=== PATIENT | female | born 1990 | race Caucasian/White ===

== ENCOUNTER 2020-11-30 02:32 | Inpatient (IN) | payer OTHER ==
[~2020-11-30] VITALS: Ht 165.1 cm; Wt 88.6 kg
[2020-11-30 19:20] VITALS: BP 117/74
--- NOTE | 2020-11-30 19:45 | History & Physical-OB ---
OB - Chief Complaint & HPI Date/Time Date of Admission: Date of Admission: Nov 30, 2020 at 19:02 Date seen by a Provider: Nov 30, 2020 Time Seen by a Provider: 19:49 Chief Complaint/History OB-Reason for Admission/Chief: Induction of Labor Hx : 1 Hx Para: 0 Expected Date of Delivery: Dec 01, 2020 Gestational Age in Weeks: 39 Gestational Age in Days: 6 Indication for induction: other (approaching postdates) History of Labs A positive, antibody neg, RI. HIV/hepB/RPR NR. GC/chlamydia neg. GBS positive. Allergies and Home Medications Allergies Coded Allergies: Latex, Natural Rubber (Verified Allergy, Mild, 11/30/20) Patient Home Medication List Home Medication List Reviewed: Yes OB - History Hx of Present Ultrasounds: Normal mid trimester US Obstetrical Complications: None Medical Complications: None Obstetrical History Hx : 1 Hx Para: 0 Hx # Term Pregnancies: 0 Hx # Pregnancies: 0 Number of Living Children: 0 Hx Termination: No Hx Multiple Gestation: No Hx Ectopic : No Hx Stillbirth: No Hx Complication: No Hx Induced Hypertens: No Hx Maternal Gestational Diabet: No Hx Hemorrhage: No Patient Past Medical History PMHx: Denies Social History/Family History Alcohol Use: Denies Use Recreational Drug Use: No Smoking Cessation: Never smoker Immunizations Rubella: immune RPR/VDRL: Negative GBS Status: Positive HBsAG: Negative OB - Admission Exam Physical Exam HEENT: NCAT Abdomen: Gravid Extremities: Normal Cervical Dilatation: 1cm Effacement: 0% Membranes: Intact Amniotic Fluid: Clear Heart Rate: 130's Decelerations: No Decelerations Senior Care Variability: Average (6-25) Contractions on Admission: >10 Minutes Apart Intensity: Mild Dunham Scoring Tool (Modified) Dilation (cm): 1-2cm (1) Effacement (%): 0-30% (0) Descent/Station: -3 (0) Cervix Consistency: Medium(1) Cervix Position: Anterior (2) Subtract 1 point for: Nulliparity (-1) Dunham Score: 3 OB - Assessment/Plan/Diagnosis Assessment Admission Dx Term intrauterine at 40 weeks gestation GBS positive Induction of labor Admission Status: Inpatient Order (span 2 midnights) Reason for Inpatient Admission: Labor, delivery and course Plan Plan: Induction Induction Method: per Misoprostol Protocol KEVON JENKINS MD Nov 30, 2020 19:45
[2020-11-30] MEDS ORDERED: AMPICILLIN FOR IV USE 2,000 MG in WATER (STERILE) FOR INJECTION 14.8 ML IV SCH (19:46)
[2020-11-30 19:56] LABS: BASOPHILS % (AUTO) 0 % (0-10); EOSINOPHILS # (AUTO) 0.1 10^3/uL (0.0-0.3); EOSINOPHILS % (AUTO) 1 % (0-10); HEMATOCRIT 35 % (35-52); HEMOGLOBIN 11.2 g/dL (11.5-16.0); LYMPHOCYTES # (AUTO) 1.7 10^3/uL (1.0-4.0); LYMPHOCYTES % (AUTO) 19 % (12-44); MEAN CORPUSCULAR HEMOGLOBIN 29 pg (25-34); MEAN CORPUSCULAR HGB CONC 33 g/dL (32-36); MEAN CORPUSCULAR VOLUME 88 fL (80-99); MEAN PLATELET VOLUME 12.1 fL (9.0-12.2); MONOCYTES # (AUTO) 0.6 10^3/uL (0.0-1.0); MONOCYTES % (AUTO) 7 % (0-12); NEUTROPHILS # (AUTO) 6.8 10^3/uL (1.8-7.8); NEUTROPHILS % (AUTO) 73 % (42-75); PLATELET COUNT 226 10^3/uL (130-400); WHITE BLOOD COUNT 9.4 10^3/uL (4.3-11.0)
[2020-11-30 20:00] VITALS: BP 117/74
[2020-11-30] MEDS ORDERED: TERBUTALINE INJ 1 MG/ML (BRETHINE) AMP SC PRN (20:00)
[2020-11-30] MEDS ORDERED: LACTATED RINGERS 1,000 ML IV SCH (20:00)
[2020-11-30] MEDS ORDERED: MINERAL OIL CONCENTRATE 99.9% 15 ML UDC TOP PRN (20:00)
[2020-11-30] MEDS: D5 LR IV SOLUTION 1,000 ML IV SCH (20:53)
[2020-11-30 21:00] VITALS: BP 112/72
[2020-11-30 22:00] VITALS: BP 114/76
[2020-11-30] MEDS ORDERED: CATHETER FLUSH 10 ML SYR IV SCH (22:00)
[2020-11-30 23:00] VITALS: BP 97/53
[2020-12-01] VITALS (31 sets, daily range): BP systolic 98–126; BP diastolic 55–82
[2020-12-01] MEDS: AMPICILLIN FOR IV USE 1,000 MG in WATER (STERILE) FOR INJECTION 7.4 ML IV SCH ×5 (01:08→16:48)
--- NOTE | 2020-12-01 03:37 | Labor Progress Note ---
Labor Progress Note Labor Progress Note Date Seen by Provider: Dec 01, 2020 Time Seen by Provider: 02:45 Subjective: Pt denies complaints. Has had a few variable decelerations that resolved with position change, oxygen and fluid boluses. Objective: Cervical exam: /0/-3 Consistency: Soft Position: anterior Presentation: vertex heart tones: 150 beats per minute, moderate variability, reactive Tocometer: 1-2 ctx/10 minutes Assessment/Plan: Tomasa Conklin is a (30 /Para 1 / 0,Gestational Age (wks)40 here for induction of labor. CEFM/TOCO Due to variable decelerations, second dose of cytotec held, attempted placement of cervical ripening catheter manually, but unable to pass through os, patient agreed to speculum exam and placement, a ring forceps was used to pass the internal balloon through the cervix until the external balloon was in the os and the uterine balloon was then filled with 20 cc of saline, gentle traction showed good placement and the external balloon was seen just outside the os and was filled with 20 cc saline. Repeat gentle traction confirmed good position and both the uterine and external balloons were filled with 80 cc of saline. Patient and infant tolerated speculum procedure well. Anesthesia: None Anticipate vaginal delivery. Vitals - Labs Vital Signs - I&O Vital Signs Date Time Temp Pulse Resp B/P (MAP) Pulse Ox O2 Delivery O2 Flow Rate FiO2 12/01/20 00:00 59 18 121/66 (84) Room Air 11/30/20 23:00 61 18 97/53 (68) 96 Room Air 11/30/20 22:00 36.3 72 18 114/76 (89) Room Air 11/30/20 21:00 68 18 112/72 (85) Room Air 11/30/20 20:00 37.0 82 18 117/74 (88) Room Air 11/30/20 19:20 37.0 82 18 98 Room Air I & O 12/01/20 07:00 Intake Total 1022.2 ml Balance 1022.2 ml Labs Laboratory Tests 11/30/20 19:30: White Blood Count 9.4, Red Blood Count 3.92, Hemoglobin 11.2L, Hematocrit 35, Mean Corpuscular Volume 88, Mean Corpuscular Hemoglobin 29, Mean Corpuscular Hemoglobin Concent 33, Red Cell Distribution Width 13.2, Platelet Count 226, Mean Platelet Volume 12.1, Immature Granulocyte % (Auto) 1, Neutrophils (%) ( Auto) 73, Lymphocytes (%) (Auto) 19, Monocytes (%) (Auto) 7, Eosinophils (%) (Auto) 1, Basophils (%) (Auto) 0, Neutrophils # (Auto) 6.8, Lymphocytes # (Auto) 1.7, Monocytes # (Auto) 0.6, Eosinophils # (Auto) 0.1, Basophils # (Auto) 0.0, Immature Granulocyte # (Auto) 0.1 KEVON JENKINS MD Dec 01, 2020 03:37
[2020-12-01] MEDS: D5 LR IV SOLUTION 1,000 ML IV SCH ×3 (06:05→14:31)
[2020-12-01] MEDS ORDERED: OXYTOCIN PRE-MIX DRIP 500 ML IV ONE (16:25)
[2020-12-01] MEDS ORDERED: OXYTOCIN PRE-MIX DRIP 500 ML IV SCH (17:00)
[2020-12-01] MEDS ORDERED: CITRIC ACID/SOB CIT (BICITRA) 30 ML UDC ONE (17:13)
[2020-12-01] MEDS ORDERED: FAMOTIDINE 20MG/2ML IV (PEPCID) ONE (17:14)
[2020-12-01] MEDS ORDERED: OXYTOCIN PRE-MIX DRIP 1,000 ML IV ONE (17:25)
[2020-12-01] MEDS ORDERED: ROPIVACAINE 5MG/ML 30ML VIAL ONE (17:25)
[2020-12-01] MEDS ORDERED: fentaNYL INJ 100 MCG/2 ML AMP ONE (17:25)
[2020-12-01] MEDS: LACTATED RINGERS 1,000 ML IV SCH ×2 (17:27→18:13)
[2020-12-01] MEDS ORDERED: ceFAZolin 2 GM IV Premixed 50 ML ONE (17:35)
[2020-12-01] MEDS ORDERED: METOCLOPRAMIDE INJ 10 MG/2 ML (REGLAN) ONE (17:37)
[2020-12-01] MEDS ORDERED: MEASLES,MUMPS,RUBELLA 1 EA INJ SC SCH (17:45)
[2020-12-01] MEDS ORDERED: TETANUS,DIPTH,PERTUSS P/F (BOOSTRIX) 0.5 ML VIAL IM SCH (17:45)
[2020-12-01] MEDS ORDERED: ONDANSETRON 4 MG/2 ML (SDV) Z0FRAN IVP PRN ×2 (17:45→19:00)
[2020-12-01] MEDS ORDERED: ceFAZolin 2 GM IV Premixed 50 ML IV ONE (17:45)
--- NOTE | 2020-12-01 17:50 | Progress Note ---
Standard Progress Note Progress Notes/Assess & Plan Date Seen by a Provider: Dec 01, 2020 Time Seen by a Provider: 17:45 Progress/Assessment & Plan Patient admitted by Dr. Rashid for IOL, she was here overnight, and had non- reassuring heart tracings at time, but would recover. However every attempt of augmentation and regulating contraction pattern, heart tracing would become non-reassuring. I was consulted for PLTCS, risk was reviewed bedside. All questions answered and moving to OR bang. GEE PRUITT DO Dec 01, 2020 17:50
--- NOTE | 2020-12-01 17:53 | Discharge Inst-Women's Service ---
Discharge Inst-Women's Serv Depart Medication/Instructions New, Converted or Re-Newed RX: RX on Chart Final Diagnosis POD 2 PLTCS Problems Reviewed?: Yes Consults/Follow Up Additional Follow Up: Yes Orders/Referrals Dr. Pedraza in 7-[address] Rashid in 6 weeks Activity Activity: Activity as Tolerated Driving Instructions: No Driving for 1 Week NO SMOKING: NO SMOKING Nothing Inside Vagina: No Douching, No [place], No Tampons Diet Discharge Diet: No Restrictions Symptoms to Report to : Bleeding Excessive, Pain Increased, Fever Over 101 Degrees F, Vaginal Bleeding Increase, Questions/Concerns For Any Problems or Questions: Contact Your Physician Skin/Wound Care Infection Signs and Symptoms: Increased Redness, Foul Odor of Wound, Increased Drainage, Skin Itchy or Has a Rash, Increased Swelling, Temperature Above 101 F Operative Area Clean and Dry: Keep Incision Clean/Dry Stitches/[place]au/Dermabond: Dermabond, Care of Stitches Bathing Instructions: GEE Jackosn DO Dec 01, 2020 17:53
[2020-12-01] MEDS ORDERED: DCS100C PO (17:55)
[2020-12-01] MEDS ORDERED: IBUP-844 PO (17:55)
[2020-12-01] MEDS ORDERED: ACHD5005 PO (17:55)
[2020-12-01] MEDS ORDERED: PHENYLEPHRINE 100 MCG/ML 10 ML (ANESTHESIA) SYR ONE (18:09)
[2020-12-01] MEDS: OXYTOCIN PRE-MIX DRIP 500 ML IV SCH ×3 (18:45→22:31)
[2020-12-01] MEDS ORDERED: LACTATED RINGERS 1,000 ML IV PRN ×2 (19:00)
[2020-12-01] MEDS ORDERED: CATHETER FLUSH 10 ML SYR IV PRN (19:00)
[2020-12-01] MEDS ORDERED: METOCLOPRAMIDE INJ 10 MG/2 ML (REGLAN) IV ONE (19:00)
[2020-12-01] MEDS ORDERED: CITRIC ACID/SOB CIT (BICITRA) 30 ML UDC PO ONE (19:00)
[2020-12-01] MEDS ORDERED: HYDROmorphone 2 MG/ML VIAL (DILAUDID) IV ONE (19:00)
[2020-12-01] MEDS: KETOROLAC 30 MG/ML VIAL IV SCH (19:10)
--- NOTE | 2020-12-01 19:58 | OPERATIVE REPORT ---
DATE OF SERVICE: PREOPERATIVE DIAGNOSES: 1. A 30-year-old G1, P0 at 40 weeks' gestation. 2. intolerance of labor. POSTOPERATIVE DIAGNOSES: 1. A 30-year-old G1, P0 at 40 weeks' gestation. 2. intolerance of labor. PROCEDURE: Primary low transverse section. SURGEON: Solitario Pedraza DO ANESTHESIA: Epidural, which was bolused. ESTIMATED BLOOD LOSS: 800 mL. URINE OUTPUT: 300 mL clear at the end of the procedure. FLUIDS: 1000 mL of lactated Ringer's solution. FINDINGS: A live male weighing 8 pounds 5 ounces, Apgars of 8 and 9. Grossly normal appearing uterus, bilateral fallopian tubes and ovaries. SPECIMEN SENT: Placenta. INDICATIONS FOR PROCEDURE: This 30-year-old female is a patient who was admitted by the [facility] for induction of labor. Dr. Rashid managed her labor, she was admitted and started on cervical ripening agents and given a Riggs bulb catheter after this due to lack of change in dilation. After the Riggs bulb was removed, I was notified that she was [address] Rashid was going to start Pitocin; however, there was evidence of distress with a few variable decelerations. Shortly after Pitocin augmentation was administered, the heart rate tracing was nonreassuring. I was consulted at that point due to remoteness of delivery and intolerance of labor to provide section. Risks of the procedure was discussed with the patient once I arrived including risk of bleeding, infection, damaging surrounding structures including, but not limited to bowel, bladder, ureter, kidneys, possible need for operation, postoperative complications that may occur, risk from anesthesia, possible need for blood transfusion and even . After everything was discussed with the patient in detail, consent was obtained in the preoperative area, the patient was taken to the operating room. OPERATIVE REPORT IN DETAIL: Once in the operating room, epidural analgesia was found to be adequate, placed in the supine position with leftward tilt, prepped and draped in normal sterile fashion where a timeout was performed, and anesthesia was tested. I then make a Pfannenstiel skin incision with a knife and carried down to underlying fascia using Bovie cautery. The fascial incision extended laterally using Bovie cautery. Superior aspect of fascial incision was then grasped with Sindi clamps, tented up and dissected off the underlying rectus muscle. Inferior aspect of fascial incision was then grasped with Sindi clamps, tented up and dissected off the underlying rectus muscles. Rectus muscle was then dissected down the midline using Elkins scissors, which exposed the peritoneum, which I entered bluntly and extended using blunt traction. An Rodolfo ring retractor was placed in the peritoneal incision, which offers excellent lateral sidewall retraction. I identified the lower uterine segment, which was found to be thinned out. I make a low transverse incision to the vesicouterine peritoneum and bluntly dissected off the lower uterine segment, creating a bladder flap. I then proceeded with my myotomy until membranes were visualized, at which point I extended the uterine incision laterally and superiorly using bandage scissors. Amniotomy was then performed using Allis clamp. Clear fluid was noted. Infant was found in vertex presentation. With gentle fundal pressure, the 's head was elevated up the incision where it was delivered through the incision. The nares and oropharynx were bulb suctioned. Anterior and posterior shoulders were delivered. was then brought to the operative field with cord doubly clamped and cut and infant was handed off to waiting nurses and Dr. Rashid, who was present for delivery. Cord blood was collected, 3-vessel cord with intact placenta was delivered spontaneously thereafter. IV Pitocin was initiated to facilitate uterine contraction. Uterine fundus confirmed by manual massage. The uterus was then exteriorized and cleared of all endometrial clots and debris. I then proceeded with closing the uterine incision using 0 Vicryl suture in running locked fashion. Second layer of imbricating 0 Monocryl was placed. Excellent hemostasis was noted after doing this. I then placed the uterus back in the pelvis and copiously irrigated the pelvis using normal saline. Once again, there was no active bleeding noted from any of my dissection planes. I placed Interceed antiadhesive over my low transverse incision and then removed the Rodolfo ring retractor. I then proceeded with closing the peritoneum using 3-0 Vicryl suture in running fashion. The rectus muscle reapproximated using 2-0 Vicryl suture in interrupted fashion. The fascia was reapproximated using 0 Vicryl suture in running fashion. The subcutaneous tissue was reapproximated using 3-0 plain interrupted subcutaneous stitch and skin reapproximated using 4-0 Monocryl running subcuticular. Dermabond was applied to incision and sterile dressing with adhesive white tape. The patient tolerated the procedure well and was taken to the recovery area in stable condition. Lap and sponge counts were correct at the end of the procedure. Instrument count was correct as well. Two grams of Ancef were given preoperatively for infection prophylaxis. Job ID: [id number] DocumentID: [id number] Dictated Date: 12/01/2020 18:53:34 Audio Visual Aide Date: 12/01/2020 19:57:37 Dictated By: SOLITARIO PEDRAZA DO
[2020-12-01] MEDS: DOCUSATE SODIUM 100 MG (COLACE) CAP PO SCH (20:01)
[2020-12-01] MEDS ORDERED: CATHETER FLUSH 10 ML SYR IV SCH (22:00)
[2020-12-01] MEDS: HYDROcodone/APAP 5 MG/325 MG (LORTAB) TAB PO PRN (22:08)
[2020-12-02] VITALS (7 sets, daily range): BP systolic 115–143; BP diastolic 58–87
[2020-12-02] MEDS: KETOROLAC 30 MG/ML VIAL IV SCH ×2 (01:17→06:59)
[2020-12-02 05:52] LABS: BASOPHILS % (AUTO) 0 % (0-10); EOSINOPHILS % (AUTO) 0 % (0-10); HEMATOCRIT 30 % (35-52); HEMOGLOBIN 9.5 g/dL (11.5-16.0); LYMPHOCYTES # (AUTO) 1.1 10^3/uL (1.0-4.0); LYMPHOCYTES % (AUTO) 12 % (12-44); MEAN CORPUSCULAR HEMOGLOBIN 29 pg (25-34); MEAN CORPUSCULAR HGB CONC 32 g/dL (32-36); MEAN CORPUSCULAR VOLUME 90 fL (80-99); MEAN PLATELET VOLUME 12.2 fL (9.0-12.2); MONOCYTES # (AUTO) 0.7 10^3/uL (0.0-1.0); MONOCYTES % (AUTO) 7 % (0-12); NEUTROPHILS # (AUTO) 7.2 10^3/uL (1.8-7.8); NEUTROPHILS % (AUTO) 80 % (42-75); PLATELET COUNT 171 10^3/uL (130-400)
--- NOTE | 2020-12-02 08:28 | Postpartum Progress Note ---
Note Note Day # 1 Subjective: Patient is without complaints. Ambulating, voiding. Tolerating a regular diet without nausea or vomiting. Normal lochia. Pain is well controlled with oral pain medications. Objective: Physical Exam: General - Alert and oriented, no apparent distress Abdomen - Soft, appropriately tender to palpation, non-distended, fundus firm at umbilicus Extremities - no edema, negative Belinda's bilaterally Incision- c/d/i Assessment: POD 1 PLTCS Acute blood loss anemia Plan: Routine care. Encourage breast feeding. Encourage ambulation. Ferrous sulfate supplementation. Plan for discharge tomorrow Vitals - Labs Vital Signs - I&O Vital Signs Date Time Temp Pulse Resp B/P (MAP) Pulse Ox O2 Delivery O2 Flow Rate FiO2 12/02/20 04:16 36.5 81 18 121/71 (88) 97 Room Air 12/02/20 01:15 36.3 80 18 115/58 (77) 97 Room Air 12/01/20 21:10 36.8 80 18 110/70 (83) 97 Room Air 12/01/20 20:00 36.5 71 18 114/69 (84) 96 Room Air 12/01/20 19:40 Room Air 12/01/20 19:30 37.2 20 123/75 (91) 99 Room Air 12/01/20 19:20 20 106/70 (82) 100 Room Air 12/01/20 19:15 Room Air 12/01/20 19:10 18 122/65 (84) 99 Room Air 12/01/20 19:00 Room Air 12/01/20 19:00 15 112/71 (85) 100 Room Air 12/01/20 18:50 14 105/67 (80) 99 Room Air 12/01/20 18:41 Room Air 12/01/20 18:41 37.1 16 110/63 (79) 98 Room Air 12/01/20 17:30 103 18 109/58 (75) Room Air 12/01/20 16:57 73 18 103/61 (75) 98 Room Air 12/01/20 16:27 72 18 105/68 (80) 100 Room Air 12/01/20 16:20 Room Air 12/01/20 16:00 36.5 60 18 98/55 (69) 100 Non Rebreather 15.00 12/01/20 15:47 Non Rebreather 15.00 12/01/20 15:27 71 18 104/61 (75) 100 Room Air 12/01/20 15:10 Room Air 12/01/20 14:57 36.8 56 18 113/73 (86) 100 Non Rebreather 15.00 12/01/20 14:27 62 18 113/74 (87) 100 Non Rebreather 15.00 12/01/20 14:21 Non Rebreather 15.00 12/01/20 13:56 Room Air 12/01/20 13:37 37.1 60 18 123/78 (93) 100 Non Rebreather 15.00 12/01/20 13:35 Non Rebreather 15.00 12/01/20 13:00 60 18 102/62 (75) 100 Room Air 12/01/20 12:00 Room Air 12/01/20 11:58 37.0 60 18 105/61 (76) 100 Non Rebreather 15.00 12/01/20 11:19 Non Rebreather 15.00 12/01/20 11:05 67 18 115/72 (86) Room Air 12/01/20 10:50 Room Air 12/01/20 10:04 36.8 75 18 117/66 (83) Non Rebreather 15.00 12/01/20 09:39 Non Rebreather 15.00 12/01/20 09:17 Room Air 12/01/20 09:03 58 18 118/68 (85) Non Rebreather 15.00 12/01/20 08:42 Non Rebreather 15.00 I & O 12/02/20 07:00 Intake Total 5457.4 ml Output Total 1500 ml Balance 3957.4 ml Labs Laboratory Tests 12/02/20 05:30: White Blood Count 9.0, Red Blood Count 3.32L, Hemoglobin 9.5L, Hematocrit 30L, Mean Corpuscular Volume 90, Mean Corpuscular Hemoglobin 29, Mean Corpuscular Hemoglobin Concent 32, Red Cell Distribution Width 13.2, Platelet Count 171, Mean Platelet Volume 12.2, Immature Granulocyte % (Auto) 1, Neutrophils (%) (Auto) 80H, Lymphocytes (%) (Auto) 12, Monocytes (%) (Auto) 7, Eosinophils (%) (Auto) 0, Basophils (%) (Auto) 0, Neutrophils # (Auto) 7.2, Lymphocytes # (Auto) 1.1, Monocytes # (Auto) 0.7, Eosinophils # (Auto) 0.0, Basophils # (Auto) 0.0, Immature Granulocyte # (Auto) 0.1 GEE PRUITT DO Dec 02, 2020 08:28
[2020-12-02] MEDS: DOCUSATE SODIUM 100 MG (COLACE) CAP PO SCH ×2 (08:46→19:54)
[2020-12-02] MEDS: HYDROcodone/APAP 5 MG/325 MG (LORTAB) TAB PO PRN ×2 (10:46→17:10)
--- NOTE | 2020-12-02 10:46 | Anesthesia-Regional Post-Op ---
Regional Patient Condition Mental Status: Alert, Oriented x3 Circulation: Same as Pre-Op Headache: Absent Sensation: Full Recovery Motor Block: Absent Post Op Complications Complications None Follow Up Care/Instructions Patient Instructions None needed. Anesthesia/Patient Condition Patient is doing well, no complaints, stable vital signs, no apparent adverse anesthesia problems. No complications reported per nursing. EDITH NICHOLSON CRNA Dec 02, 2020 10:46
[2020-12-02] MEDS: IBUPROFEN 600 MG (MOTRIN) TAB PO SCH ×3 (13:35→23:28)
[2020-12-02] MEDS ORDERED: IBUPROFEN 600 MG (MOTRIN) TAB PO SCH (17:45)
[2020-12-03] MEDS: IBUPROFEN 600 MG (MOTRIN) TAB PO SCH ×3 (05:50→11:54)
[2020-12-03 06:55] VITALS: BP 119/77
[2020-12-03 08:05] VITALS: BP 117/73
[2020-12-03] MEDS: DOCUSATE SODIUM 100 MG (COLACE) CAP PO SCH (08:11)
--- NOTE | 2020-12-03 10:09 | Postpartum Progress Note ---
Note Note Day # 2 Subjective: Patient is without complaints. Ambulating, voiding. Tolerating a regular diet without nausea or vomiting. Normal lochia. Pain is well controlled with oral pain medications. Objective: Physical Exam: General - Alert and oriented, no apparent distress Abdomen - Soft, appropriately tender to palpation, non-distended, fundus firm at umbilicus Extremities - no edema, negative Belinda's bilaterally Incision- c/d/i Assessment: POD 2 PLTCS Acute blood loss anemia Plan: Routine care. Encourage breast feeding. Encourage ambulation. Ferrous sulfate supplementation. Plan for discharge today Vitals - Labs Vital Signs - I&O Vital Signs Date Time Temp Pulse Resp B/P (MAP) Pulse Ox O2 Delivery O2 Flow Rate FiO2 12/03/20 08:05 36.6 73 16 117/73 (88) 97 12/03/20 06:55 36.8 86 18 119/77 (91) 98 Room Air 12/02/20 23:34 36.5 85 18 143/87 (105) 100 Room Air 12/02/20 20:00 36.6 79 18 127/75 (92) 98 Room Air 12/02/20 13:00 36.6 85 18 128/80 (96) 98 Room Air GEE PRUITT DO Dec 03, 2020 10:09
== END 2020-12-03 18:00 | disposition home or self-care (01) | DRG 787 ==
LOC: LDRP 19:02
PROVIDERS: ADMIT Family Medicine; ATTEND Family Medicine
PROC: 10D00Z1 Extraction of Products of Conception, Low, Open Approach (ICD-10-PCS; principal; 2020-12-01 17:48)
DX: O76 Abnormality in fetal heart rate and rhythm complicating labor and delivery (principal); D62 Acute posthemorrhagic anemia; O99.824 Streptococcus B carrier state complicating childbirth; Z3A.40 40 weeks gestation of pregnancy; Z37.0 Single live birth; O90.81 Anemia of the puerperium
CPT/HCPCS: 36415; 85025; 86850; 86900; 86901

== ENCOUNTER → 2022-05-30 | Outpatient (CLI) | payer BC ==
[~2022-05-30] MED LIST: ACHD5005 PO; DOCU-239 PO; IBUP-844 PO
--- NOTE | 2022-05-30 19:05 | Diagnostic Imaging Report ---
INDICATION: survey. TECHNIQUE: Multiple real-time grayscale images were obtained over the gravid uterus. COMPARISON: None. FINDINGS: June viable IUP is in transverse position. Based upon the submitted images, it appears this to have the head towards the maternal left. The placenta is anterior. There is no abruption or previa. heart rate is irregular at 135 BPM. The nondilated cervix has a length of 6.2 cm. The tip of the placenta is 5 cm, separable from the closed os. No pathological finding at the anatomical survey. Measurements correlate with an average age of 22 weeks 1 day. IMPRESSION: 22 week 1 day june viable transversely positioned IUP with no pathological finding identified. Biometrical measurements are as follows: Biparietal 5.25 cm, age 22 weeks 0 days. Head circumference 20.54 cm, age 22 weeks 5 days. Abdominal circumference 17.27 cm, age 22 weeks 2 days. Femur length 3.59 cm, age 21 weeks 3 days. Sonographic estimate age: 22 weeks 1 days. Sonographic estimated date of delivery: 10/02/2022. Estimated Weight: 461 gm (+/- 68 gm). LMP percentile: 63%. heart rate: 136 beats per minute. number: 1 of 1. Dictated by: Dictated on workstation # [id number]
== END ==
LOC: RAD 15:15
PROVIDERS: ATTEND Nurse Practitioner Women's Health
DX: Z34.02 Encounter for supervision of normal first pregnancy, second trimester (principal); Z3A.22 22 weeks gestation of pregnancy
CPT/HCPCS: 76805

== ENCOUNTER 2022-09-30 06:07 | Inpatient (IN) | payer BC ==
[2022-09-30] VITALS (53 sets, daily range): BP systolic 65–151; BP diastolic 39–87
[~2022-09-30] VITALS: Ht 165.1 cm; Wt 77.7 kg
[2022-09-30] MEDS ORDERED: MINERAL OIL 30 ML UDC TOP PRN (06:30)
[2022-09-30 06:43] LABS: BASOPHILS % (AUTO) 0 % (0-10); EOSINOPHILS % (AUTO) 0 % (0-10); HEMATOCRIT 31 % (35-52); HEMOGLOBIN 10.2 g/dL (11.5-16.0); LYMPHOCYTES # (AUTO) 1.6 10^3/uL (1.0-4.0); LYMPHOCYTES % (AUTO) 20 % (12-44); MEAN CORPUSCULAR HEMOGLOBIN 28 pg (25-34); MEAN CORPUSCULAR HGB CONC 33 g/dL (32-36); MEAN CORPUSCULAR VOLUME 84 fL (80-99); MEAN PLATELET VOLUME 11.6 fL (9.0-12.2); MONOCYTES # (AUTO) 0.6 10^3/uL (0.0-1.0); MONOCYTES % (AUTO) 7 % (0-12); NEUTROPHILS # (AUTO) 5.8 10^3/uL (1.8-7.8); NEUTROPHILS % (AUTO) 72 % (42-75); PLATELET COUNT 191 10^3/uL (130-400); WHITE BLOOD COUNT 8.1 10^3/uL (4.3-11.0)
--- NOTE | 2022-09-30 08:01 | History & Physical-OB/GYN ---
History of Present Illness History of Present Illness Reason for visit/HPI Patient presents as 32 yo at 39w2d GA for PROM. She reports leakage of fluid since 0200, and minimal contractions since then, none painful. Denies VB; good FM. no other systemic complaints Date of Admission Sep 30, 2022 at 06:19 Date Seen by a Provider: Sep 30, 2022 Time Seen by a Provider: 07:00 I consulted on this patient on 09/30/22 07:55 Attending Physician Ghassan Boles MD Admitting Physician Admitting Physician: Ghassan Boles MD Attending Physician: Ghassan Boles MD Consult Allergies and Home Medications Allergies Coded Allergies: Latex, Natural Rubber (Verified Allergy, Mild, 11/30/20) Patient Home Medication List Home Medication List Reviewed: Yes Docusate Sodium (Dok) 100 Mg Capsule, 100 MG PO BID PRN for CONSTIPATION-1ST LINE Prescribed by: GEE PRUITT on 12/01/201754 Hydrocodone Bit/Acetaminophen (HYDROcodone/APAP 5 MG/325 MG TAB) 1 Tab Tab, 1-2 EA PO Q6HR PRN for PAIN-MODERATE (5-7) Prescribed by: GEE PRUITT on 12/01/201754 Ibuprofen (Ibu) 600 Mg Tablet, 600 MG PO Q6HR Prescribed by: GEE PRUITT on 12/01/201754 Past Ulcbqqb-Ukbjgt-Yyftlq Hx Patient Social History Smoking Status: Never a Smoker Have you traveled recently?: No Alcohol Use?: No Pt feels they are or have been: No Respiratory Currently Using CPAP: No Currently Using BIPAP: No Reproductive System Expected Date of Delivery: Oct 06, 2022 Review of Systems Constitutional: no symptoms reported EENTM: no symptoms reported Respiratory: no symptoms reported Cardiovascular: no symptoms reported Gastrointestinal: no symptoms reported : Yes Musculoskeletal: no symptoms reported Skin: no symptoms reported Psychiatric/Neurological: No Symptoms Reported All Other Systems Reviewed Negative Unless Noted: Yes Physical Exam Physical Exam Vital Signs Vital Signs Date Time Temp Pulse Resp B/P (MAP) Pulse Ox O2 Delivery O2 Flow Rate FiO2 09/30/22 06:14 36.8 93 18 99 Room Air Capillary Refill : Less Than 3 Seconds Labs Laboratory Tests 09/30/22 06:30: White Blood Count 8.1, Red Blood Count 3.66L, Hemoglobin 10.2L, Hematocrit 31L, Mean Corpuscular Volume 84, Mean Corpuscular Hemoglobin 28, Mean Corpuscular Hemoglobin Concent 33, Red Cell Distribution Width 13.6, Platelet Count 191, Mean Platelet Volume 11.6, Immature Granulocyte % (Auto) 1, Neutrophils (%) (Auto) 72, Lymphocytes (%) (Auto) 20, Monocytes (%) (Auto) 7, Eosinophils (%) (Auto) 0, Basophils (%) (Auto) 0, Neutrophils # (Auto) 5.8, Lymphocytes # (Auto) 1.6, Monocytes # (Auto) 0.6, Eosinophils # (Auto) 0.0, Basophils # (Auto) 0.0, Immature Granulocyte # (Auto) 0.0 09/30/22 06:35: Membranes Rupture POSITIVE General Appearance: No Apparent Distress Respiratory: Normal Breath Sounds, No Respiratory Distress Cardiovascular: Normal Peripheral Pulses Cervix OS: open (FT/70/-2) Assessment/Plan Assessment and Plan 32 yo at 39w GA admitted for PROM. I discussed with pt recommendation to proceed with delivery due to ruptured membranes. Regarding route of deliver y, I had an extensive conversation with patient regarding risks/benefits of RLTCS vs TOLAC (she had 1 prior CS due to indications previously, but had not been in labor or ruptured). In particular, emphasized approximately 0.8% risk of uterine rupture (which would be potentially life threatening to mom and baby) if she opted to labor, and that with addition of oxytocin (as part of induction), would be closer to 1.5%. Further, discussed odds of success, which per TOLAC calculator I would estimate are about 65% for this patient. After considering risks and benefits of each, patient opts to proceed with IOL for TOLAC, voicing understanding of the above risks. Further, I discussed case with Janae Bull who clarified that cervical ripening can be permitted per unit protocol if not with prostaglandins. Cephalic on BSUS; GBS neg Cook catheter placed for cervical ripening (60cc uterine, 60cc vaginal), and would recommend possible oxytocin, and possible forebag rupture, depending on exam after cervical ripening Details otherwise as outlined above. Problems: (1) SROM (spontaneous rupture of membranes) Admission Diagnosis Admission Status: Inpatient Order (span 2 midnights) Reason for Inpatient Admission: 2 midnights expected with induction course and recovery SCRAFFORD,GHASSAN D MD Sep 30, 2022 08:01
[2022-09-30] MEDS ORDERED: CATHETER FLUSH 10 ML SYR IV SCH (14:00)
[2022-09-30] MEDS ORDERED: LACTATED RINGERS 1,000 ML IV SCH (15:15)
[2022-09-30] MEDS ORDERED: fentaNYL 2 mcg/ml BUPIVA 0.125 100 ML ONE (15:39)
[2022-09-30] MEDS: D5 LR IV SOLUTION 1,000 ML IV SCH ×2 (16:02→20:46)
[2022-09-30] MEDS ORDERED: BUPIVACAINE 0.25% 10 ML (SENSORCAINE) VIAL ONE (16:13)
[2022-09-30] MEDS ORDERED: fentaNYL INJ 100 MCG/2 ML AMP ONE (16:13)
[2022-09-30] MEDS ORDERED: OXYTOCIN PRE-MIX DRIP 500 ML IV SCH (16:30)
[2022-09-30] MEDS ORDERED: CATHETER FLUSH 10 ML SYR IV PRN (16:45)
[2022-09-30] MEDS ORDERED: NALOXONE 0.4 MG/ML 1 ML (NARCAN) VIAL IV PRN ×2 (16:45→23:00)
[2022-09-30] MEDS ORDERED: fentaNYL 2 mcg/ml BUPIVA 0.125 100 ML IV SCH (16:45)
[2022-09-30] MEDS ORDERED: LACTATED RINGERS 1,000 ML IV ONE (16:45)
--- NOTE | 2022-09-30 17:06 | Labor Progress Note ---
Labor Progress Note Labor Progress Note Date Seen by Provider: Sep 30, 2022 Time Seen by Provider: 17:00 Subjective: Pt denies complaints. comfortable with epidural Objective: Cervical exam: /- Consistency: medium Position: midposition Presentation: cephalic heart tones: 130 beats per minute, moderate variability, reactive Tocometer: 2-3 ctx/10 minutes Assessment/Plan: Tomasa Conklin is a (32 /Para / ,Gestational Age (wks)39 here for PROM; inducing for TOLAC after extensive counseling on risks/benefits/alternative. s/p cook catheter for ripening, and starting oxytocin; recheck in 2 hours unless indicated sooner. s/p epidural Vitals - Labs Vital Signs - I&O Vital Signs Date Time Temp Pulse Resp B/P (MAP) Pulse Ox O2 Delivery O2 Flow Rate FiO2 09/30/22 13:45 37.2 75 18 117/76 (90) Room Air 09/30/22 11:55 36.9 71 18 115/69 (84) Room Air 09/30/22 10:54 37.3 68 18 105/61 (76) 99 Room Air 09/30/22 09:09 37.0 62 18 133/85 (101) Room Air 09/30/22 08:00 37.5 79 18 108/72 (84) 97 Room Air 09/30/22 06:14 36.8 93 18 99 Room Air Labs Laboratory Tests 09/30/22 06:30: White Blood Count 8.1, Red Blood Count 3.66L, Hemoglobin 10.2L, Hematocrit 31L, Mean Corpuscular Volume 84, Mean Corpuscular Hemoglobin 28, Mean Corpuscular Hemoglobin Concent 33, Red Cell Distribution Width 13.6, Platelet Count 191, Mean Platelet Volume 11.6, Immature Granulocyte % (Auto) 1, Neutrophils (%) (Auto) 72, Lymphocytes (%) (Auto) 20, Monocytes (%) (Auto) 7, Eosinophils (%) (Auto) 0, Basophils (%) (Auto) 0, Neutrophils # (Auto) 5.8, Lymphocytes # (Auto) 1.6, Monocytes # (Auto) 0.6, Eosinophils # (Auto) 0.0, Basophils # (Auto) 0.0, Immature Granulocyte # (Auto) 0.0 09/30/22 06:35: Membranes Rupture POSITIVE SCRAFFORD,GHASSAN D MD Sep 30, 2022 17:06
[2022-09-30] MEDS ORDERED: ONDANSETRON 4 MG/2 ML (SDV) Z0FRAN IVP ONE (20:45)
--- NOTE | 2022-09-30 21:00 | Labor Progress Note ---
Labor Progress Note Labor Progress Note Date Seen by Provider: Sep 30, 2022 Time Seen by Provider: 20:30 Subjective: Pt denies complaints. Objective: (Can we insert 24 hour vitals here?) Cervical exam: /0 heart tones: 130 beats per minute, moderate variability, reactive Tocometer: 3 ctx/10 minutes Assessment/Plan: Tomasa Conklin is a (32 /Para / ,Gestational Age (wks)38 here for PROM, now in labor s/p IOL with cook catheter and oxytocin. CEFM/TOCO Continue pitocin/ Anesthesia: s/p epidural Vitals - Labs Vital Signs - I&O Vital Signs Date Time Temp Pulse Resp B/P (MAP) Pulse Ox O2 Delivery O2 Flow Rate FiO2 09/30/22 18:55 73 105/64 (78) 99 09/30/22 18:40 76 101/55 (70) 100 09/30/22 18:25 69 119/73 (88) 97 09/30/22 18:10 72 104/69 (81) 99 09/30/22 17:55 74 114/75 (88) 100 09/30/22 17:50 68 114/72 (86) 100 09/30/22 17:45 37.2 70 103/58 (73) 100 09/30/22 17:35 80 112/68 (83) 100 09/30/22 17:30 96 96/66 (76) 99 09/30/22 17:25 81 101/68 (79) 100 09/30/22 17:20 67 90/56 (67) 100 09/30/22 17:14 79 101/66 (78) 09/30/22 17:11 73 98/62 (74) 09/30/22 17:08 69 18 106/69 (81) 09/30/22 17:05 75 18 111/66 (81) 09/30/22 17:02 70 18 95/62 (73) 09/30/22 16:58 78 18 103/57 (72) 09/30/22 16:57 72 18 65/39 (48) 09/30/22 16:54 80 18 118/74 (89) 100 Room Air 09/30/22 16:51 87 18 99/65 (76) 100 Room Air 09/30/22 16:48 110 18 111/72 (85) 97 Room Air 09/30/22 16:45 96 18 107/72 (84) 98 Room Air 09/30/22 16:42 93 18 111/72 (85) 98 Room Air 09/30/22 16:39 87 18 126/79 (95) 99 Room Air 09/30/22 16:36 90 18 151/65 (93) 100 Room Air 09/30/22 16:33 83 18 122/81 (95) 100 Room Air 09/30/22 16:30 112 18 114/77 (89) 100 Room Air 09/30/22 16:22 98 18 115/87 (96) 97 Room Air 09/30/22 16:05 68 18 129/82 (98) Room Air 09/30/22 16:00 37.1 09/30/22 15:15 76 18 121/81 (94) Room Air 09/30/22 13:45 37.2 75 18 117/76 (90) Room Air 09/30/22 11:55 36.9 71 18 115/69 (84) Room Air 09/30/22 10:54 37.3 68 18 105/61 (76) 99 Room Air 09/30/22 09:09 37.0 62 18 133/85 (101) Room Air 09/30/22 08:00 37.5 79 18 108/72 (84) 97 Room Air 09/30/22 06:14 36.8 93 18 99 Room Air Labs Laboratory Tests 09/30/22 06:30: White Blood Count 8.1, Red Blood Count 3.66L, Hemoglobin 10.2L, Hematocrit 31L, Mean Corpuscular Volume 84, Mean Corpuscular Hemoglobin 28, Mean Corpuscular Hemoglobin Concent 33, Red Cell Distribution Width 13.6, Platelet Count 191, Mean Platelet Volume 11.6, Immature Granulocyte % (Auto) 1, Neutrophils (%) (Auto) 72, Lymphocytes (%) (Auto) 20, Monocytes (%) (Auto) 7, Eosinophils (%) (Auto) 0, Basophils (%) (Auto) 0, Neutrophils # (Auto) 5.8, Lymphocytes # (Auto) 1.6, Monocytes # (Auto) 0.6, Eosinophils # (Auto) 0.0, Basophils # (Auto) 0.0, Immature Granulocyte # (Auto) 0.0 09/30/22 06:35: Membranes Rupture POSITIVE GHASSAN DEL TORO MD Sep 30, 2022 21:00
[2022-09-30] MEDS ORDERED: TRANEXAMIC ACID 100 MG/ML 10 ML INJECTION ONE (21:01)
[2022-09-30] MEDS ORDERED: NS (IVPB) 100 ML ONE (21:59)
[2022-09-30] MEDS: OXYTOCIN PRE-MIX DRIP 500 ML IV SCH ×2 (22:06→22:33)
[2022-09-30] MEDS ORDERED: METHYLERGONOVINE 0.2 MG/ML (METHERGINE) AMP ONE (22:22)
[2022-09-30] MEDS ORDERED: METHYLERGONOVINE 0.2 MG/ML (METHERGINE) AMP IM ONE (22:30)
--- NOTE | 2022-09-30 22:42 | OB Labor & Delivery Record ---
Vag Delivery Note Vag Delivery Note Date of Delivery: 09/30/22 Preoperative Diagnosis: Tomasa Conklin is a (32 /Para / ,Gestational Age (wks)39with PROM; she was induced with cook catheter and oxytocin Postoperative Diagnosis: Same Surgeon: GHASSAN DEL TORO Anesthesia: Epidural Delivery Type: Findings: Viable female , apgars 8/9, weight pending Lacerations: 2nd degree and R sidewall Intact placenta with 3 vessel cord. No nuchal cord, body cord or shoulder dystocia Estimated Blood Loss: 700 ml Complications: None Condition: Stable Description of Procedure: The patient is a 32 year old female who presented with PROM. She was admitted and informed consent was obtained. Her labor course was notable for induction with cook catheter and oxytocin. She progressed to complete dilatation and began to push. She was then set up for delivery. The infant's head was delivered atraumatically in the EAMON position. The shoulders and remainder of the 's body were then delivered without difficulty. Upon delivery, the was vigorous and placed on maternal chest and the mouth and nares were bulb suctioned. After a delay cord was doubly clamped and cut and the remained on maternal chest. An intact placenta with 3-vessel cord delivered, the uterine scar felt to be intact by palpation, and moderate bleeding was noted, though did decrease within 2-3 minutes with administration of oxytocin + TXA + methergine + misoprostol. Vigorous fundal massage was performed and the fundus was found to be firm. I Examination of the vagina and perineum revealed a 2nd degree perineal laceration repaired in the usual fashion with 3-0 vicryl rapide suture; the same was used to repair a R vaginal sidewall laceration. Following the repair, sponge, instrument and needle counts were correct. Mom and baby were both in stable condition in the labor suite. Vitals - Labs Vital Signs - I&O Vital Signs Date Time Temp Pulse Resp B/P (MAP) Pulse Ox O2 Delivery O2 Flow Rate FiO2 09/30/22 21:11 114 18 135/73 (93) 99 Room Air 09/30/22 20:42 91 18 139/79 (99) 100 Room Air 09/30/22 20:27 72 18 117/78 (91) 99 Room Air 09/30/22 20:12 80 18 112/73 (86) 99 Room Air 09/30/22 19:56 96 18 113/69 (84) 98 Room Air 09/30/22 19:42 72 18 117/67 (84) 99 Room Air 09/30/22 19:25 76 18 96/63 (74) 98 Room Air 09/30/22 19:10 67 18 102/59 (73) 99 Room Air 09/30/22 18:55 73 105/64 (78) 99 09/30/22 18:40 76 101/55 (70) 100 09/30/22 18:25 69 119/73 (88) 97 09/30/22 18:10 72 104/69 (81) 99 09/30/22 17:55 74 114/75 (88) 100 09/30/22 17:50 68 114/72 (86) 100 09/30/22 17:45 37.2 70 103/58 (73) 100 09/30/22 17:35 80 112/68 (83) 100 09/30/22 17:30 96 96/66 (76) 99 09/30/22 17:25 81 101/68 (79) 100 09/30/22 17:20 67 90/56 (67) 100 09/30/22 17:14 79 101/66 (78) 09/30/22 17:11 73 98/62 (74) 09/30/22 17:08 69 18 106/69 (81) 09/30/22 17:05 75 18 111/66 (81) 09/30/22 17:02 70 18 95/62 (73) 09/30/22 16:58 78 18 103/57 (72) 09/30/22 16:57 72 18 65/39 (48) 09/30/22 16:54 80 18 118/74 (89) 100 Room Air 09/30/22 16:51 87 18 99/65 (76) 100 Room Air 09/30/22 16:48 110 18 111/72 (85) 97 Room Air 09/30/22 16:45 96 18 107/72 (84) 98 Room Air 09/30/22 16:42 93 18 111/72 (85) 98 Room Air 09/30/22 16:39 87 18 126/79 (95) 99 Room Air 09/30/22 16:36 90 18 151/65 (93) 100 Room Air 09/30/22 16:33 83 18 122/81 (95) 100 Room Air 09/30/22 16:30 112 18 114/77 (89) 100 Room Air 09/30/22 16:22 98 18 115/87 (96) 97 Room Air 09/30/22 16:05 68 18 129/82 (98) Room Air 09/30/22 16:00 37.1 09/30/22 15:15 76 18 121/81 (94) Room Air 09/30/22 13:45 37.2 75 18 117/76 (90) Room Air 09/30/22 11:55 36.9 71 18 115/69 (84) Room Air 09/30/22 10:54 37.3 68 18 105/61 (76) 99 Room Air 09/30/22 09:09 37.0 62 18 133/85 (101) Room Air 09/30/22 08:00 37.5 79 18 108/72 (84) 97 Room Air 09/30/22 06:14 36.8 93 18 99 Room Air Labs Laboratory Tests 09/30/22 06:30: White Blood Count 8.1, Red Blood Count 3.66L, Hemoglobin 10.2L, Hematocrit 31L, Mean Corpuscular Volume 84, Mean Corpuscular Hemoglobin 28, Mean Corpuscular Hemoglobin Concent 33, Red Cell Distribution Width 13.6, Platelet Count 191, Mean Platelet Volume 11.6, Immature Granulocyte % (Auto) 1, Neutrophils (%) (Auto) 72, Lymphocytes (%) (Auto) 20, Monocytes (%) (Auto) 7, Eosinophils (%) (Auto) 0, Basophils (%) (Auto) 0, Neutrophils # (Auto) 5.8, Lymphocytes # (Auto) 1.6, Monocytes # (Auto) 0.6, Eosinophils # (Auto) 0.0, Basophils # (Auto) 0.0, Immature Granulocyte # (Auto) 0.0 09/30/22 06:35: Membranes Rupture POSITIVE GHASSAN DEL TORO MD Sep 30, 2022 22:42
[2022-09-30] MEDS ORDERED: TRANEXAMIC ACID 100 MG/ML 10 ML INJECTION IV ONE (22:45)
[2022-09-30] MEDS ORDERED: WITCH HAZEL(TUCKS) 40 EA JAR TOP PRN (23:00)
[2022-09-30] MEDS ORDERED: DIBUCAINE 1% OINTMENT 28 GM TUBE TOP PRN (23:00)
[2022-09-30] MEDS ORDERED: BENZOCAINE/MENTHOL (DERMOPLAST) 56 ML CAN TP PRN (23:00)
[2022-09-30 23:06] LABS: BASOPHILS % (AUTO) 0 % (0-10); EOSINOPHILS % (AUTO) 0 % (0-10); HEMATOCRIT 27 % (35-52); HEMOGLOBIN 8.5 g/dL (11.5-16.0); LYMPHOCYTES % (AUTO) 14 % (12-44); MEAN CORPUSCULAR HEMOGLOBIN 28 pg (25-34); MEAN CORPUSCULAR HGB CONC 32 g/dL (32-36); MEAN CORPUSCULAR VOLUME 86 fL (80-99); MEAN PLATELET VOLUME 11.4 fL (9.0-12.2); MONOCYTES # (AUTO) 0.5 10^3/uL (0.0-1.0); MONOCYTES % (AUTO) 7 % (0-12); NEUTROPHILS # (AUTO) 5.6 10^3/uL (1.8-7.8); NEUTROPHILS % (AUTO) 78 % (42-75); PLATELET COUNT 146 10^3/uL (130-400); WHITE BLOOD COUNT 7.3 10^3/uL (4.3-11.0)
[2022-09-30] MEDS ORDERED: ONDANSETRON 4 MG/2 ML (SDV) Z0FRAN ONE (23:30)
[2022-10-01] MEDS: IBUPROFEN 600 MG (MOTRIN) TAB PO SCH ×3 (00:37→18:04)
[2022-10-01 02:20] VITALS: BP 110/70
[2022-10-01 05:48] LABS: BASOPHILS % (AUTO) 0 % (0-10); EOSINOPHILS % (AUTO) 0 % (0-10); HEMATOCRIT 28 % (35-52); LYMPHOCYTES # (AUTO) 1.5 10^3/uL (1.0-4.0); LYMPHOCYTES % (AUTO) 16 % (12-44); MEAN CORPUSCULAR HEMOGLOBIN 28 pg (25-34); MEAN CORPUSCULAR HGB CONC 33 g/dL (32-36); MEAN CORPUSCULAR VOLUME 86 fL (80-99); MEAN PLATELET VOLUME 11.8 fL (9.0-12.2); MONOCYTES # (AUTO) 0.8 10^3/uL (0.0-1.0); MONOCYTES % (AUTO) 8 % (0-12); NEUTROPHILS # (AUTO) 7.3 10^3/uL (1.8-7.8); NEUTROPHILS % (AUTO) 75 % (42-75); PLATELET COUNT 181 10^3/uL (130-400); WHITE BLOOD COUNT 9.7 10^3/uL (4.3-11.0)
[2022-10-01] MEDS ORDERED: CATHETER FLUSH 10 ML SYR IV SCH (06:00)
[2022-10-01 06:06] VITALS: BP 111/66
[2022-10-01 08:00] VITALS: BP 121/78
[2022-10-01] MEDS: PRENATAL VITAMIN 1 EA TAB PO SCH (08:01)
[2022-10-01] MEDS: DOCUSATE SODIUM 100 MG (COLACE) CAP PO SCH ×2 (08:01→20:20)
--- NOTE | 2022-10-01 11:13 | Anesthesia-Regional Post-Op ---
Regional Patient Condition Mental Status: Alert, Oriented x3 Circulation: Same as Pre-Op Headache: Absent Sensation: Full Recovery Motor Block: Absent Post Op Complications Complications None Follow Up Care/Instructions Patient Instructions None needed. Anesthesia/Patient Condition Patient is doing well, no complaints, stable vital signs, no apparent adverse anesthesia problems. No complications reported per nursing. ASHLEY GRAHAM CRNA Oct 01, 2022 11:13
[2022-10-01 12:09] VITALS: BP 114/71
[2022-10-01 16:00] VITALS: BP 108/51
[2022-10-01 20:00] VITALS: BP 119/55
[2022-10-02 02:19] VITALS: BP 108/58
[2022-10-02] MEDS: IBUPROFEN 600 MG (MOTRIN) TAB PO SCH ×2 (02:22→08:14)
[2022-10-02] MEDS: PRENATAL VITAMIN 1 EA TAB PO SCH (06:28)
[2022-10-02 08:00] VITALS: BP 112/74
--- NOTE | 2022-10-02 08:06 | Postpartum Progress Note ---
Note Note Day # 2 Subjective: Patient is without complaints. Ambulating, voiding. Tolerating a regular diet without nausea or vomiting. Normal lochia. Pain is well controlled with oral pain medications. Objective: Physical Exam: General - Alert and oriented, no apparent distress Abdomen - Soft, appropriately tender to palpation, non-distended, fundus firm at umbilicus Extremities - no edema, negative Belinda's bilaterally Assessment: PPD 2 NVD Plan: Routine care. Encourage breast feeding. Encourage ambulation. Ferrous sulfate supplementation. Plan for discharge today Vitals - Labs Vital Signs - I&O Vital Signs Date Time Temp Pulse Resp B/P (MAP) Pulse Ox O2 Delivery O2 Flow Rate FiO2 10/02/22 02:19 36.8 84 18 108/58 (75) 96 Room Air 10/01/22 20:00 36.8 89 18 119/55 (76) 98 Room Air 10/01/22 16:00 36.1 90 18 108/51 (70) 98 Room Air 10/01/22 12:09 36.2 86 18 114/71 (85) 100 Room Air GEE PRUITT DO Oct 02, 2022 08:06
--- NOTE | 2022-10-02 08:06 | Discharge Inst-Women's Service ---
Discharge Inst-Women's Serv Depart Medication/Instructions New, Converted or Re-Newed RX: Transmitted to Pharmacy Final Diagnosis PPD 2 NVD Problems Reviewed?: Yes Consults/Follow Up Additional Follow Up: Yes Orders/Referrals Dr. Pruitt in 6 weeks Activity Activity: Activity as Tolerated Driving Instructions: No Driving for 1 Week NO SMOKING: NO SMOKING Nothing Inside Vagina: No Douching, No [place], No Tampons Diet Discharge Diet: No Restrictions Symptoms to Report to : Bleeding Excessive, Pain Increased, Fever Over 101 Degrees F, Vaginal Bleeding Increase, Questions/Concerns For Any Problems or Questions: Contact Your Physician GEE PRUITT DO Oct 02, 2022 08:06
[2022-10-02] MEDS ORDERED: DIBU30OI TOP (08:08)
[2022-10-02] MEDS ORDERED: PNV1TABL67 PO (08:08)
[2022-10-02] MEDS ORDERED: IBUP-844 PO (08:08)
[2022-10-02] MEDS ORDERED: DOCU100C37 PO (08:08)
[2022-10-02] MEDS ORDERED: BENZ78AE5 TP (08:08)
[2022-10-02] MEDS: DOCUSATE SODIUM 100 MG (COLACE) CAP PO SCH (08:14)
== END 2022-10-02 13:55 | disposition home or self-care (01) | DRG 806 ==
LOC: WSo 06:07 → LDRP 06:10 → WSo 06:17 → LDRP 06:19
PROVIDERS: ADMIT Student in an Organized Health Care Education/Training Program; ATTEND Student in an Organized Health Care Education/Training Program
PROC: 10E0XZZ Delivery of Products of Conception, External Approach (ICD-10-PCS; principal; 2022-09-30)
PROC: 0KQM0ZZ Repair Perineum Muscle, Open Approach (ICD-10-PCS; 2022-09-30)
PROC: 0UQG7ZZ Repair Vagina, Via Natural or Artificial Opening (ICD-10-PCS; 2022-09-30)
PROC: 3E033VJ Introduction of Other Hormone into Peripheral Vein, Percutaneous Approach (ICD-10-PCS; 2022-09-30)
PROC: 0U7C7ZZ Dilation of Cervix, Via Natural or Artificial Opening (ICD-10-PCS; 2022-09-30)
DX: O42.02 Full-term premature rupture of membranes, onset of labor within 24 hours of rupture (principal); O71.4 Obstetric high vaginal laceration alone; Z37.0 Single live birth; O70.1 Second degree perineal laceration during delivery; O34.219 Maternal care for unspecified type scar from previous cesarean delivery; Z3A.39 39 weeks gestation of pregnancy; Z79.891 Long term (current) use of opiate analgesic; Z79.1 Long term (current) use of non-steroidal anti-inflammatories (NSAID); Z79.899 Other long term (current) drug therapy
CPT/HCPCS: 36415; 84112; 85025; 86780; 86850; 86900; 86901